=== PATIENT | male | born 1945 | race Caucasian/White ===

== ENCOUNTER 2016-12-17 15:20 | Emergency (ER) | payer MEDICARE ==
[~2016-12-17] VITALS: Ht 170.2 cm; Wt 104.5 kg
[~2016-12-17 15:20] MED LIST: AMLO5TAB2 PO; BENZ-12 PO; CARV25TA2 PO; CHOL500011 PO; CITA20TA11 PO; DONE10TA42 PO; IBUP800T28 PO; INSU100V7 SUBQ; LEVE500T3 PO; LORA0.5T PO; LOSA100T29 PO; MEMA5TAB15 PO; METF1000 PO; OMEP20CA11 PO; OXYB10TA PO; PHEN100C11 PO; SIMV80TA4 PO
[2016-12-17 15:28] VITALS: BP 133/66; PULSE 54; RESP 12; O2SAT 97
--- NOTE | 2016-12-17 17:59 | ED.REPORT ---
HPI-General Illness Date of Service Dec 17, 2016 ED Provider: Bandar Augustin MD Patient is a 71 year old male with a hx of DM, HTN, hyperlipidemia, dementia, cerebral amyloid disease, and seizure disorder who presents to the ED s/p 4 ground level falls today. During one of his falls he fell flat on his face and broke his glasses. Per family, he normally has occasional falls but he is able to crumple to the ground instead of falling over. Per family, he is not experiencing facial droop, fever, chills, cough, headache, dysuria, melena, hematochezia, hematuria, or any other symptoms. He was seen by Dr. Shetty one week ago. He was recently started on Sinemet but this seems to worsen his symptoms so they stopped it. They reportedly called Dr. shetty this morning and were told to come to the emergency room to be evaluated. Per the patient and his he is at his regular baseline that he has been slightly more unsteady on his feet and falling more often. He denies any other symptoms whatsoever. Nursing Notes Stated Complaint: SEVERAL GLF TODAY Chief Complaint: Multiple Trauma/Fall Nursing Notes Reviewed: Yes Allergies: Coded Allergies: No Known Allergies (Verified Allergy, Unknown, 08/21/16) Scheduled Amlodipine (Amlodipine) 5 Mg Tablet 5 MG PO DAILY Carvedilol (Carvedilol) 25 Mg Tablet 25 MG PO BID Cholecalciferol (Vitamin D3) (Vitamin D3) 5,000 Unit Tablet 5,000 UNIT PO 2 times a week take wednesday and wed Citalopram (Citalopram) 20 Mg Tablet 30 MG PO BID Donepezil (Donepezil) 10 Mg Tablet 10 MG PO HS Insulin Glargine (Lantus U100 Insulin Vial) 100 Unit/Ml Vial 40 UNITS SUBQ BID Levetiracetam (Levetiracetam) 500 Mg Tablet 500 MG PO BID Losartan Potassium (Losartan Potassium) 100 Mg Tablet 50 MG PO DAILY Memantine HCl (Memantine HCl) 5 Mg Tablet 10 MG PO HS Metformin (Glucophage) 1,000 Mg Tablet 1,000 MG PO BID Omeprazole (Omeprazole) 20 Mg Capsule.dr 20 MG PO BID Oxybutynin Chloride ER (Oxybutynin Chloride ER) 10 Mg Tab.er.24 10 MG PO BID Phenytoin Sodium Extended (Phenytoin Sodium Extended) 100 Mg Capsule 200 MG PO QAM Phenytoin Sodium Extended (Phenytoin Sodium Extended) 100 Mg Capsule 300 MG PO HS Simvastatin (Simvastatin) 80 Mg Tablet 40 MG PO HS Scheduled PRN Benzonatate (Tessalon Perle) 100 Mg Capsule 100 MG PO BID PRN PRN For Cough Ibuprofen (Ibuprofen) 800 Mg Tablet 800 MG PO DAILY PRN PRN For Pain Lorazepam (Lorazepam) 0.5 Mg Tablet 0.5 MG PO TID PRN PRN For Anxiety General Time Seen by MD: 16:48 Chief Complaint Other (Multiple falls ) Hx Obtained From: Patient, Spouse, Other family... Arrived By: Walk-in Recent Healthcare: Recent doctor visit Past Medical History Past Medical History Notes: Neurologist: Warner Shetty Past Medical History Dementia, cerebral angiomyelopathy Reports: COPD, Diabetes mellitus, Hyperlipidemia, Hypertension Reports: Seizure disorder Past Surgical History Pilinoidal cyst Urinary tract polyp Smoking History Former Smoker Social History Drug Use: THC Other Social History: Good social support, Ambulatory Status Independent Review of Systems +increased falls Full Review of Systems Constitutional: Denies: Chills, Fever Respiratory: Denies: Non-productive cough GI: Denies: Hematochezia, Melena Male: Denies Dysuria, Denies Hematuria Neurologic: Reports: Weakness (L leg ), Denies: Headache Complete sys rev & neg: except as marked. Physical Exam Vital Signs Vital Signs Date Time Temp Pulse Resp B/P Pulse Ox O2 Delivery O2 Flow Rate FiO2 12/17/16 15:28 35.8 54 12 133/66 97 Room Air Initial VS: Reviewed Alertness: Positive: Somnolent Somulent but awake to verbal commands. Head / Eyes: Atraumatic, Normocephalic, PERRL (3mm), EOMI No signs of trauma Midface stable ENT: Gums/dentition NL Mouth: Positive: Mucous membranes dry Respiratory / Chest: Atraumatic, Breath sounds NL, Breath sounds = bilat, No respiratory distress Cardiovascular: Heart sounds NL, No gallop, No murmurs, No rubs, Peripheral circulation NL Abdomen: Atraumatic, Soft, Non-tender Back: Inspection NL, Non-tender, No midline vertebral tend, No paraspinal tenderness, No CVA tenderness Lower Extremity / Pelvis / MS: No swelling Superficial abrasion over R knee with no bony deformity or effusion. No calf swelling or tenderness Ankle / Foot: Non-tender Trace bilat pitting edema in ankles Neurologic: Speech NL, CN II - XII intact Oriented to place and time. Speech is fluent and organized. Plug Stitcher 5/5 bilaterally. 5/5 strength in all 4 extremities Sensation intact in all 4 extremities FNF intact with a coarse, resting tremor. Some difficulting understanding test initially. Negative romberg test. Able to stand with eyes closed w/o falling over. Slow, shuffled gait. Can walk in a straight line while maintaining balance but has difficukty maintaining balance while turning (almost like he is tripping over his feet because he is shuffling so much). Interpretation & Diagnostics Lab Results Interpretation Result Diagram: 12/17/16181912/17/161819 Test 12/17/16 18:20 12/17/16 19:05 White Blood Count 8.9th/mm3 (3.8-10.1) Red Blood Count 4.91mil/mm3 (4.40-5.80) Hemoglobin 14.8g/dL (13.8-17.2) Hematocrit 42.9% (41.0-50.0) Mean Corpuscular Volume 87.4fL (81-100) Mean Corpuscular Hemoglobin 30.1pg (27.0-35.0) Mean Corpuscular Hemoglobin Concent 34.5% (32.0-37.0) Red Cell Distribution Width 13.3% (12.3-15.4) Platelet Count 209bil/L (150-400) Neutrophils (%) (Auto) 61.2% (40-74) Lymphocytes (%) (Auto) 25.5% (14-46) Monocytes (%) (Auto) 9.6% (4-12) Eosinophils (%) (Auto) 3.3% (0-5) Basophils (%) (Auto) 0.2% (0-3) Sodium Level 133mEq/L (134-144) Potassium Level 4.8mEq/L (3.5-5.2) Chloride Level 96mEq/L (97-108) Carbon Dioxide Level 21mmol/L (18-29) Blood Urea Nitrogen 23mg/dL (8-27) Creatinine 0.99mg/dL (0.76-1.27) Estimat Glomerular Filtration Rate 79mL/min (>59) Glucose Level 248mg/dL (60-99) Calcium Level 9.4mg/dL (8.5-10.1) Magnesium Level 2.0mg/dL (1.6-2.6) Total Bilirubin 0.2mg/dL (0.0-1.2) Aspartate Amino Transf (AST/SGOT) 44U/L (0-50) Alanine Aminotransferase (ALT/SGPT) 83U/L (0-44) Alkaline Phosphatase 108U/L (25-160) Troponin T 0.010ug/L (0.0-0.011) Total Protein 7.2g/dL (6.4-8.4) Albumin 3.9g/dL (3.4-5.0) Hold Aguilar Top Tube Received (Received) Phenytoin (Dilantin) Level 22.8uG/mL (10.0-20.0) Urine Color Yellow (YELLOW) Urine Appearance Hazy (CLEAR,HAZY) Urine pH 6.0 (5.0-8.0) Urine Specific [place] 1.30 (1.003-1.035) Urine Protein Tracemg/dL (NEG,TRACE) Urine Glucose (UA) 250mg/dL (NEGATIVE) Urine Ketones Tracemg/dL (NEGATIVE) Urine Occult Blood Trace (NEGATIVE) Urine Nitrite Negative (NEGATIVE) Urine Bilirubin Negative (NEGATIVE) Urine Urobilinogen Normalmg/dL (NORMAL) Urine Leukocyte Esterase Negative (NEGATIVE) Urine RBC 0-2/hpf (0-2) Urine WBC 0-5/hpf (0-5) Urine Epithelial Cells Moderate/hpf (NONE-MOD) Urine Crystals None seen (NONE SEEN) Urine Bacteria Few/hpf (NONE-FEW) Urine Hyaline Casts None/lpf (NONE) Urine Granular Casts None seen (NONE SEEN) Urine Waxy Casts None seen (NONE SEEN) Urine Red Blood Cell Casts None seen (NONE SEEN) Urine White Blood Cell Casts None seen (NONE SEEN) Urine Mucus Present (None Seen) Urine Trichomonas None seen (NONE SEEN) Urine Yeast None (NONE SEEN) Urinalysis Comment None Urine Culture Reflexed Not indicated Lab Results Interpretation: CBC unremarkable NA 133 Glucose 248 ALT mildly elevated Trop neg CMP unremarkable Unconvincing for UTI ECG Interpretation ECG Interpretation: sinus rate 55 normal axis and interval no ST,T segment changes compaired to prior (10/30/16) remains bradycardic no acute ischemic changes present Time: 18:31 Interpreted by: ED physician X-Ray Chest Interpretation Chest Xray Interpretation: IMPRESSION: No acute disease Dictated by: Lázaro White M.D. on 12/17/2016 at 20:06 Approved by: Lázaro White M.D. on 12/17/2016 at 20:07 View: Portable, 1 view Interpretation / Wet Read by: Interpret - Radiologist CT Head Interpretation CT BRAIN: IMPRESSION: No acute intracranial abnormality. Dictated by: Lázaro White M.D. on 12/17/2016 at 18:52 Approved by: Lázaro White M.D. on 12/17/2016 at 18:53 Study: Head CT no contrast Interpretation / Wet Read by: Interpret - Radiologist Re-Eval/Medical Decision Med Decision/Clinical Course Patient is a 71 year old male with a hx of DM, HTN, hyperlipidemia, dementia, cerebral amyloid disease, and seizure disorder who presents to the ED s/p 4 ground level falls today. During one of his falls he fell flat on his face and broke his glasses. Per family, he normally has occasional falls but he is able to crumple to the ground instead of falling over. Per family, he is not experiencing facial droop, fever, chills, cough, headache, dysuria, melena, hematochezia, hematuria, or any other symptoms. He was seen by Dr. Shetty one week ago. He was recently started on Sinemet but this seems to worsen his symptoms so they stopped it. They reportedly called Dr. shetty this morning and were told to come to the emergency room to be evaluated. Per the patient and his he is at his regular baseline that he has been slightly more unsteady on his feet and falling more often. He denies any other symptoms whatsoever. Here in the emergency department the patient was afebrile, hemodynamically stable and in no apparent distress. I performed a comprehensive head to toe evaluation for trauma which was relatively unremarkable. The patient's complete neurologic examination was without any lateralizing deficits. He was noted to have a shuffling gait though he had equal strength and sensation in all 4 extremities, no pronator drift, no dysmetria and a negative Romberg test. Laboratory studies were obtained as below: CBC unremarkable NA 133 Glucose 248 ALT mildly elevated Trop neg CMP unremarkable Urinalysis Unconvincing for UTI CXR: Obtained, reviewed and interpreted by myself shows no evidence of infiltrates, effusions or pneumothorax. Cardiac and mediastinal silhouette normal. No bony or soft tissue abnormalities. Head CT demonstrated no acute intracranial process. Patient was discussed with his neurologist Dr. shetty. Dr. shetty stated that the primary concern with sending him to the emergency department was intracranial hemorrhage from trauma or bleeding related to his underlying cerebral amyloid angiopathy. We have ruled both of these out at this point. Dr. Vasquez would like the patient admitted overnight for observation and be reassessed by him in the morning. The patient adamantly refuses admission is sitting dressed at the bedside and states that he would like to go home. He is accompanied by his son who states that he will be watched closely throughout the night and tomorrow and that he will be taken back to the emergency room immediately should he develop any new or recurring symptoms. They both state that they do not feel that he needs to be admitted. The patient demonstrates good decisional capacity and insight into his condition at this time. Moreover he is accompanied by his son who also does not want him to be admitted. The patient will use his walker at all times and will be assisted in moving about the house make sure that he does not fall again. I considered additional causes of the patient's falling including stroke however he has no lateralizing neurologic deficits. He is mildly hyponatremic though I doubt that this explains his symptoms. There is no evidence of pneumonia, UTI or acute infectious process. I do not see any indication that the patient has meningitis. I feel that it is reasonable to discharge him as this is his wish and he understands the risks of refusing further workup and admission. Prior to discharge follow-up and return precautions were reviewed in detail with the patient who verbalized understanding and agreement with the plan. The patient was discharged in stable condition. Time of Eval: 21:06 Re-Evaluation/Progress Note: Rechecked pt. He refuses admission and would like to go home. Pt agrees to use cane or walker. Discussed plan for discharge. Patient understands and agrees with plan. All questions addressed at this time Consultation #1: Referral / Consult Name: Warner Shetty MD Consulted With: Neurology Call Returned at: 20:52 Note: Discussed pt case. Woul like pt admitted Consultation #2: Referral / Consult Name: Norm Byrne MD Consulted With: Hospitalist Call Returned at: 20:57 Warehouse Clerk: Will see patient, Agrees with eval, Agrees with plan, Accepts admit Note: Discussed pt case. Accepts admit. Counseled Regarding: Diagnosis, Lab results, Need for follow-up, When/why to return to ED Discharge & Departure Primary Impression: Fall from ground level Additional Impressions: Cerebral amyloid angiopathy Unsteady gait Hyponatremia Head trauma Encounter type: initial encounter Qualified Code: S09.90XA - Unspecified injury of head, initial encounter Disposition: Home Discharge Condition All VS Reviewed: Yes Condition: Improved Additional Instructions: Thank you for seeking care at the emergency room. Our primary goal today in the ED was to evaluate you for any life-threatening conditions. Your evaluation was reassuring. Your neurologist recommended that he be admitted to the hospital but you did not want to be admitted. Please call your neurologist tomorrow morning to make a follow-up appointment. Please use your cane and walker at all times so that you avoid falling again. You should return to the ED immediately if you develop increasing difficulty walking, falling, hitting her head, headache, confusion, weakness, fevers, vomiting, cough, shortness of breath, chest pain, lightheadedness or any other concerning signs or symptoms. Thank you for letting us partake in your care today. Referrals: Nicole Gusman (PCP) Scribe Attestation Portions of this note were transcribed by Alana Felix. I, Dr. Augustin personally performed the history, physical exam and medical decision-making; I reviewed and confirmed the accuracy of the information in the transcribed note. Signed by: Alana Felix 12/17/16, 2752 copies to: Nicole Gusman Beck O MD Dec 17, 2016 17:59 ALANA FELIX Dec 17, 2016 18:08
[2016-12-17] MEDS ORDERED: 0.9% Sodium Chloride 1,000 ML IV ONE (18:02)
[2016-12-17 18:37] LABS: BASOPHILS % (AUTO) 0.2 % (0-3); EOSINOPHILS % (AUTO) 3.3 % (0-5); MONOCYTES % (AUTO) 9.6 % (4-12); Mean Corpuscular Hemoglobin 30.1 pg (27.0-35.0); Mean Corpuscular Volume 87.4 fL (81-100); NEUTROPHILS % (AUTO) 61.2 % (40-74); Platelet Count 209 bil/L (150-400)
--- NOTE | 2016-12-17 18:55 | DRSVH ---
PROCEDURE: CT BRAIN WITHOUT CONTRAST ([id number]) INDICATIONS: ams, trauma TECHNIQUE: Noncontrast 4.5 mm thick angled axial sections acquired from the foramen magnum to the vertex, with c oronal reformats. COMPARISON: None. FINDINGS: Image quality: Excellent. CSF spaces: Basal cisterns are patent. No extra-axial fluid collections. The ventricles are symmet dinorah in size and shape. Brain: No intracranial bleeds or masses. There is cerebral volume loss for age, with resultant vent ricular and sulcal prominence. There are periventricular and deep white matter chronic small vessel ischemic changes. There is intracranial internal carotid artery atherosclerosis. Skull and face: Calvarium and visualized facial bones appear intact, without suspicious lesions. Sinuses: Visualized sinuses and mastoids are clear. IMPRESSION: No acute intracranial abnormality. Dictated by: Lázaro White M.D. on 12/17/2016 at 18:52 Approved by: Lázaro White M.D. on 12/17/2016 at 18:53
[2016-12-17 19:05] LABS: TROPONIN T 0.01 ug/L (0.0-0.011)
[2016-12-17 19:54] LABS: APPEARANCE,URINE HAZY (CLEAR,HAZY); COLOR,URINE YELLOW (YELLOW); OCCULT BLOOD,URINE TRACE (NEGATIVE); UROBILINOGEN,URINE NORMAL (NORMAL)
--- NOTE | 2016-12-17 20:09 | DRSVH ---
PROCEDURE: X-RAY CHEST ONE VIEW, PORTABLE ([id number]) INDICATIONS: ALTERED MENTAL STATUS TECHNIQUE: One view of the chest was acquired. COMPARISON: TALIA Yeager, CHEST 2VW, 12/17/2016, 1:16 PM. FINDINGS: Surgical changes and devices: None. Lungs and pleura: No pleural effusions or pneumothorax. Lungs are clear. Mild bibasilar scarring/a telectasis Mediastinum: Mediastinal contours appear normal. Heart size is normal. Bones and chest wall: Lateral curvature of the spine IMPRESSION: No acute disease Dictated by: Lázaro White M.D. on 12/17/2016 at 20:06 Approved by: Lázaro White M.D. on 12/17/2016 at 20:07
[2016-12-17] MEDS ORDERED: Ondansetron 2 mg/mL 2 mL Inj IVPUSH PRN ×2 (21:00→21:10)
[2016-12-17] MEDS ORDERED: Alum-Mag Hydrox-Simeth 30 mL Suspension PO PRN ×2 (21:00→21:10)
[2016-12-17] MEDS ORDERED: Polyethylene Glycol (PEG) 17 Gm Powder PO PRN (21:10)
[2016-12-18] MEDS ORDERED: Heparin 5,000 Unit/mL Inj SUBQ SCH (00:30)
== END 2016-12-17 21:19 | disposition home or self-care (01) ==
LOC: SED 15:20
DX: S09.90XA Unspecified injury of head, initial encounter (principal); E87.1 Hypo-osmolality and hyponatremia; R26.89 Other abnormalities of gait and mobility; I68.0 Cerebral amyloid angiopathy; W01.0XXA Fall on same level from slipping, tripping and stumbling without subsequent striking against object, initial encounter; Y93.01 Activity, walking, marching and hiking; Y99.8 Other external cause status; Y92.481 Parking lot as the place of occurrence of the external cause; I10 Essential (primary) hypertension; E11.9 Type 2 diabetes mellitus without complications; J44.9 Chronic obstructive pulmonary disease, unspecified; E78.5 Hyperlipidemia, unspecified; R29.6 Repeated falls; Z87.891 Personal history of nicotine dependence; Z86.69 Personal history of other diseases of the nervous system and sense organs; Z79.84 Long term (current) use of oral hypoglycemic drugs; Z79.4 Long term (current) use of insulin
CPT/HCPCS: 36415; 70450; 71010; 80053; 80185; 80299; 81000; 83735; 84484; 85025; 93005; 96360; 99285; J7030